=== PATIENT | female | born 1980 | race Caucasian/White ===

== ENCOUNTER 2019-11-10 20:30 | Emergency (ER) | payer MEDICAID, SELFPAY ==
[2019-11-10 20:30] VITALS: BP 145/82; PULSE 98; RESP 16; TEMP 36.7; O2SAT 97; BMI 44.2
--- NOTE | 2019-11-10 20:52 | ED.DCSUM_ITS ---
History of Present Illness Chief Complaint: Vag Bleeding Informant: Patient Pain: Pelvic Pain Current Severity: Mild Maximum Severity: Moderate Issue: Vaginal bleeding Onset: Days - 3 Context: Gradual Onset Timing: Continuous Current Severity: Heavy Maximum Severity: Heavy Associated Symptoms: Negative for: Dysuria, Frequency Last known menstrual period: 08/26/2019 Narrative: Patient has been , saw her [facility] in the office earlier in the week and had a transvaginal ultrasound in the office that showed intrauterine demise according to the patient. She was told to expect vaginal bleeding but she states this is an unbelievable amount and she literally is afraid that she is going to bleed out and . As result she has been extremely anxious making her feel short of breath that she states that is my anxiety. She was at [facility] [place] emergency room/hospital last night after she passed out, and the patient states she was told there is nothing we can do for you here. An ultrasound was not repeated, they gave her a prescription for a type and screen/typing because she does not know her blood type. She has had no further episodes of syncope. She has pelvic pain that is diffuse and relatively unchanged. She has no history of an ectopic . - Past Medical History (1) COPD (chronic obstructive pulmonary disease) Status: Chronic Past Medical History - Allergies and Home Meds Allergies/Adverse Reactions: Allergies morphine Adverse Reaction (Verified 11/10/19 20:33) Vomiting Primary Care Physician: NOT,DEFINED [NON-STAFF] - Past Medical History: None Smoking Status: Current every day smoker Review of Systems General: Reports: Malaise. Denies: Chills, Fever, Sweats Eyes: Denies: Visual changes - bilaterally, Diplopia ENT: Denies: Rhinorrhea, Sore throat Cardiovascular: Denies: Chest pain, Palpitations Respiratory: Denies: Dyspnea, Cough, Dyspnea on exertion Gastrointestinal: Reports: Abdominal pain. Denies: Nausea, Vomiting, Diarrhea, Melena, Hematochezia Genitourinary: Reports: - - Heavy vaginal bleeding. See HPI.. Denies: Dysuria, Hematuria, Frequency Musculoskeletal: Denies: Back pain, Swelling, Extremity Pain Skin: Denies: Rash, Wounds Neurological: Denies: Headache, Weakness, Numbness Physical Exam Vital Signs/Narrative: Vital Signs Temp Pulse Resp BP Pulse Ox 11/10/19 20:30 98.0 F 98 16 145/82 H 97 Inital Vital Signs reviewed: Yes General: Well nourished, Well developed, - - NAD. Sitting on the bed conversive in full sentences. Head: Normocephalic, Atraumatic Eyes: Perrl, EOMI ENT: Moist mucous membranes, No rhinorrhea Neck: Supple, Nontender Cardiovascular: Regular rate, Regular rhythm, No murmurs Respiratory: No distress, Chest nontender, Wheezing - Mild inspiratory bilateral. Negative for: Rales, Rhonchi Abdomen: Soft, Nondistended, Normal bowel sounds, Tender - Mild suprapubic only. Negative for: Guarding, Rebound tenderness : Speculum exam: Old blood, Mild active bleeding, Small clots - removed, - - limited eval due to obesity and retroverted cervical os Bimanual exam: Os closed, Mild cervical motion tenderness, - - limited eval due to obesity and retroverted cervical os Back: Nontender, Normal Inspection Extremities: Nontender, No edema. Negative for: Calf Tenderness Skin: Normal color, No rash, No Trauma Neurological: Alert, Oriented x3, Cranial nerves II-XII grossly intact, Normal Strength, Normal Sensation, Normal Gait Psychological: Tearful - And anxious Diagnostic/Tx/Re-eval Laboratory Results 11/10/19 11/10/19 11/10/19 21:05 21:05 21:05 WBC 9.9 RBC 3.33 L Hgb 10.4 L Hct 30.5 L MCV 91.6 MCH 31.2 MCHC 34.1 RDW Std Deviation 43.9 RDW Coeff of Jhon 13.3 Plt Count 184 MPV 11.1 Immature Gran % (Auto) 0.200 Neut % (Auto) 72.6 H Lymph % (Auto) 21.2 [place] % (Auto) 4.5 Eos % (Auto) 1.3 Baso % (Auto) 0.2 Absolute Neuts (auto) 7.2 Absolute Lymphs (auto) 2.10 Nucleated RBC % 0 Sodium 141 Potassium 3.6 Chloride 107 Carbon Dioxide 26.0 Anion Gap 8 BUN 13 Creatinine 0.75 Estim Creat Clear Calc 82.48 Est GFR (MDRD) Af Amer 110 Est GFR (MDRD) Non-Af 91 BUN/Creatinine Ratio 17.3 Glucose 102 Calcium 8.8 HCG, Quant 2899 H Blood Type 11/10/19 21:05 WBC RBC Hgb Hct MCV MCH MCHC RDW Std Deviation RDW Coeff of Jhon Plt Count MPV Immature Gran % (Auto) Neut % (Auto) Lymph % (Auto) [place] % (Auto) Eos % (Auto) Baso % (Auto) Absolute Neuts (auto) Absolute Lymphs (auto) Nucleated RBC % Sodium Potassium Chloride Carbon Dioxide Anion Gap BUN Creatinine Estim Creat Clear Calc Est GFR (MDRD) Af Amer Est GFR (MDRD) Non-Af BUN/Creatinine Ratio Glucose Calcium HCG, Quant Blood Type A POSITIVE - Medical Decision/Diagnostic Studies During patient's stay after the pelvic exam, her bleeding seemed to taper. She felt better with less pelvic cramping, without other treatment. Multiple clots were removed from her vaginal vault and cervical os. Her hemoglobin is 10.4. She does not require transfusion given normal vital signs, her quant is 2899. I discussed with her OB, he confirmed seeing her in the office earlier this week and saw what appeared to be a blighted ovum 5-6 weeks along, he does not recall the quantitative hCG exactly but at the current number it is decreasing. He agrees that she can follow-up as an outpatient and requests no prescriptions or medicines be given in the meantime except for iron supplementation. We dis cussed reasons to return. Patient is comfortable with this plan. Her blood type was checked and it is a positive so RhoGam is not indicated. Ultrasound is not in-house at the hour the patient presents, and I do not think she needs the ultrasound emergently given the ultrasound that was performed by her participant administrator in the office and the fact that she is going to follow-up again after the weekend for reevaluation, as the results tonight would probably not change the course or disposition/treatment, as we have essentially already ruled out ectopic . ED Disposition - Plan for ED Patient: Disposition: Home or Assisted Living Diagnosis: Miscarriage Instructions: ED MISCARRIAGE Completed Referrals: dr. Malaika [Other] - 3-5 Days Additional Instructions: take OTC iron supplementation.
[2019-11-10 21:09] VITALS: BP 100/57; PULSE 67; RESP 16
[2019-11-10 21:23] LABS: Absolute Neutrophil Count 7.2 X10^3/uL (2.0-7.7); Basophil# 0.02 X10^3/uL; Basophil% 0.2 % (0-1); Eosinophil# 0.13 X10^3/uL; Eosinophils% 1.3 % (0-5); Hematocrit 30.5 % (37-47); Hemoglobin 10.4 g/dL (12.0-15.0); Lymphocyte % 21.2 % (19-41); Mean Corp Hgb Conc 34.1 g/dL (32-36); Mean Corpuscular Hgb 31.2 pg (27.0-32.0); Mean Corpuscular Volume 91.6 fL (81-99); Mean Platelet Vol. 11.1 fl (6.2-12.0); Monocyte# 0.45 X10^3/uL; Monocyte% 4.5 % (0-10); NRBC Flagged by Analyzer 0 % (0-5); Neutrophil # 7.19 X10^3/uL (2.7-7.7); Neutrophil % 72.6 % (47-70); Platelet Count 184 K/mm3 (150-450); RBC Distribution Width CV 13.3 % (11.6-14.6); RBC Distribution Width SD 43.9 fl (35.1-43.9); Red Blood Count 3.33 M/mm3 (4.2-5.4); White Blood Count 9.9 K/mm3 (4.4-11.0)
[2019-11-10 21:38] LABS: BUN 13 mg/dL (7-18); BUN/Creat Ratio 17.3 RATIO (10-20); Calcium,Total 8.8 mg/dL (8.5-10.1); Creatinine, Serum 0.75 mg/dL (0.55-1.02); EST Glomerular Filtration Rate 91 mL/min (>60); Est Glom Filt Rate - Afr Amer 110 mL/min (>60); Estimated Creatinine Clearance 82.48 ml/min; Glucose 102 mg/dL (74-106); Sodium Level 141 mmol/L (136-145)
[2019-11-10 21:39] LABS: Anion Gap 8 (5-15); Chloride 107 mmol/L (98-107); Potassium 3.6 mmol/L (3.5-5.1)
[2019-11-10 22:04] LABS: hCG Titer Quant., Serum 2899 mIU/mL (1-3)
[2019-11-10 22:47] VITALS: BP 117/56; PULSE 92; RESP 15; O2SAT 98
== END 2019-11-10 23:10 | disposition home or self-care (01) ==
PROVIDERS: Emergency Provider Emergency Medicine; PCP Obstetrics & Gynecology
DX: O03.9 Complete or unspecified spontaneous abortion without complication (principal); J44.9 Chronic obstructive pulmonary disease, unspecified; F17.200 Nicotine dependence, unspecified, uncomplicated
CPT/HCPCS: 80048; 84702; 85025; 86900; 86901; 96360; 99285; J7030